=== PATIENT | male | born 1995 | race African-American/Black ===

== ENCOUNTER 2018-10-14 12:30 | Inpatient (IN) | payer OTHER ==
[~2018-10-14] VITALS: Ht 167.6 cm; Wt 71.4 kg
[2018-10-14 13:23] LABS: HEMATOCRIT 46.5 % (42.0-52.0); HEMOGLOBIN 15.3 g/dl (13.5-17.5); MEAN CORPUSCULAR HEMOGLOBIN 28.2 pg (27.0-33.0); MEAN CORPUSCULAR HGB CONC 32.9 g/dl (32.0-36.5); MEAN CORPUSCULAR VOLUME 85.8 fl (80.0-96.0); PLATELET COUNT, AUTOMATED 256 10^3/uL (150-450); RED BLOOD COUNT 5.42 10^6/uL (4.30-6.10); WHITE BLOOD COUNT 4.1 10^3/uL (4.0-10.0)
[2018-10-14 13:44] LABS: AMPHETAMINES LEVEL URINE NEGATIVE (NEGATIVE); BARBITURATES URINE NEGATIVE (NEGATIVE); BENZODIAZEPINES URINE NEGATIVE (NEGATIVE); CANNABINOIDS URINE NEGATIVE (NEGATIVE); COCAINE METABOLITE URINE NEGATIVE (NEGATIVE); METHADONE URINE NEGATIVE (NEGATIVE); OPIATES URINE NEGATIVE (NEGATIVE); PHENCYCLIDINE URINE NEGATIVE (NEGATIVE)
[2018-10-14 13:56] LABS: ACETAMINOPHEN LEVEL < 2.0 UG/ML (10.0-30.0); ALBUMIN 3.8 GM/DL (3.2-5.2); ALT/SGPT 25 U/L (12-78); BILIRUBIN,DIRECT 0.1 MG/DL (0.0-0.2); BILIRUBIN,TOTAL 0.4 MG/DL (0.2-1.0); BLOOD UREA NITROGEN 11 MG/DL (7-18); CALCIUM LEVEL 9.2 MG/DL (8.5-10.1); CARBON DIOXIDE LEVEL 26 MEQ/L (21-32); CHLORIDE LEVEL 107 MEQ/L (98-107); CREATININE FOR GFR 1.01 MG/DL (0.70-1.30); ETHYL ALCOHOL (ETHANOL) < 0.003 % (0.000-0.010); GLOMERULAR FILTRATION RATE > 60.0 (>60); GLUCOSE, FASTING 98 MG/DL (70-100); POTASSIUM SERUM 4.2 MEQ/L (3.5-5.1); SALICYLATE LEVEL < 1.7 MG/DL (5.0-30.0); SODIUM LEVEL 140 MEQ/L (136-145); THYROID STIMULATING HORMONE 0.857 uIU/ML (0.358-3.740); TOTAL PROTEIN 7.5 GM/DL (6.4-8.2)
[2018-10-14] MEDS ORDERED: traZODone 50 MG TAB PO PRN (16:30)
[2018-10-14] MEDS ORDERED: MOM 30ML SUSPENSION UDC PO PRN (16:30)
[2018-10-14] MEDS ORDERED: ACETAMINOPHEN TAB 650MG DOSE (2X325MG) PO PRN (16:30)
[2018-10-14 20:27] VITALS: BP 132/72
[2018-10-15 06:37] VITALS: BP 97/50
[2018-10-15] MEDS: NICOTINE 21MG/24HR 1 EA TRANSDERMAL TD SCH (09:00)
[2018-10-15] MEDS: SERTRALINE HCL 50 MG TAB PO SCH (09:49)
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
--- NOTE | 2018-10-15 11:59 | HPEPDOC ---
[facility] Medical History & Physical History and Physical CHIEF COMPLAINT: Depression and Suicidal Ideation HISTORY OF PRESENT ILLNESS: 22 year old male pmh of headache and depression who presented to ER on 10/14/18 morning because he had suicidal ideation but no plan to follow through. He is currently active at [facility]. He is currently admitted at [facility] for psych treatment. He has no complaints of medical problems. PAST MEDICAL HISTORY: 1. Headache 2. Depression PAST SURGICAL HISTORY: NONE. SOCIAL HISTORY: Marital status: but lives alone currently Resides in: [facility] Children: None Employment: Tobacco use: Cigar 1 pack day for 1 month ETOH: Denies Illicit drug use: Smoked weed as a teenager. Tattoos done unprofessionally: yes in [place]. all done in [place] last one 1 year prior IV drug use: No FAMILY HISTORY: Father: Attention hyperlipidemia Mother: NONE ALLERGIES: Please see below. REVIEW OF SYSTEMS: CONSTITUTIONAL: Denies, fever, chills, night sweats HEENT: denies itchy eyes, rhinorrhea, sinus congestion, PND CARDIOVASCULAR: denies palpitation or chest pain RESPIRATORY: Denies cough, SOB, trouble breathing hx of asthma. GASTROINTESTINAL: admits to 2 episodes of loose stool this AM. denies abdominal pain, nausea vomiting, constipation. SKIN: denies skin breakdown or lymphadenopathy NEUROLOGICAL: admits headaches, denies lightheadedness, dizziness or unsteadiness HOME MEDICATIONS: Please see below. PHYSICAL EXAMINATION: GENERAL APPEARANCE: Pleasant 22-year-old -[place] Citizen male does not appear acute distress appropriately answering questions. HEENT: Atraumatic normocephalic pupils equal round reactive, moist mucous membranes CARDIOVASCULAR: Regular Rate and rhythm, no audible murmurs rubs or gallops. LUNGS: Clear to auscultate bilaterally no audible wheezing rhonchi or Rales ABDOMEN: Soft nondistended abdomen MUSCULOSKELETAL: No lower extremity edema tenderness NEUROLOGICAL: Alert and oriented 3 PSYCHIATRIC: Appropriate Affect LABORATORY DATA: See below. MICROBIOLOGY: Please see below. ASSESSMENT: 22 year old male pmh of headache and depression who presented to ER on 10/14/18 morning because he had suicidal ideation but no plan to follow through. PLAN: 1. No medical problems.If any medical problems arise while he is admitted please recontact us thank you. 2. Follow psychiatric recommendations for depression Vital Signs Vital Signs Date Time Temp Pulse Resp B/P (MAP) Pulse Ox O2 Delivery O2 Flow Rate FiO2 10/15/18 06:37 97.6 51 16 97/50 (66) 10/14/18 20:27 97 Laboratory Data Labs 24H Laboratory Tests 2 10/14/18 12:53: Nucleated Red Blood Cells % (auto) 0.0, Anion Gap 7L, Glomerular Filtration Rate > 60.0, Calcium Level 9.2, Aspartate Amino Transf (AST/SGOT) 19, Alanine Aminotransferase (ALT/SGPT) 25, Alkaline Phosphatase 77, Total Bilirubin 0.4, Direct Bilirubin 0.1, Total Protein 7.5, Albumin 3.8, Albumin/Globulin Ratio 1.03, Thyroid Stimulating Hormone (TSH) 0.857, Salicylates Level < 1.7L, Urine Amphetamines Screen NEGATIVE, Urine Benzodiazepines Screen NEGATIVE, Urine Opiates Screen NEGATIVE, Urine Methadone Screen NEGATIVE, Acetaminophen Level < 2.0L, Urine Barbiturates Screen NEGATIVE, Urine Phencyclidine Screen NEGATIVE, Urine Cocaine Metabolite Screen NEGATIVE, Urine Cannabinoids Screen NEGATIVE, Ethyl Alcohol Level < 0.003 CBC/BMP Laboratory Tests 10/14/18 12:53 Red Blood Count 5.42, Mean Corpuscular Volume 85.8, Mean Corpuscular Hemoglobin 28.2, Mean Corpuscular Hemoglobin Concent 32.9, Red Cell Distribution Width 13.2 Home Medications Scheduled Nicotine (Nicotine Patch) 21 Mg Patch.td24, 1 PATCH TD DAILY for nicotine cravings Sertraline HCl (Sertraline HCl) 50 Mg Tablet, 50 MG PO DAILY for depression Scheduled PRN Trazodone HCl (Trazodone HCl) 50 Mg Tablet, 50 MG PO QHSP PRN for INSOMNIA Allergies Coded Allergies: No Known Allergies (Verified Allergy, Unknown, 10/14/18) A-FIB/CHADSVASC A-FIB History Current/History of A-Fib/PAF?: No GME ATTESTATION GME ATTESTATION My faculty preceptor for this patient encounter was physically present during the encounter and was fully available. All aspects of the patient interview, examination, medical decision making process, and medical care plan development were reviewed and approved by the faculty preceptor. The faculty preceptor is aware and concurs with the plan as stated in the body of this note and will attest to such by his/her cosignature. ATTENDING NOTE I have reviewed the residents note and have personally examined the patient. I agree with the Residents physical examination and assessment and plan. YOUSUF JEFFERY DO Oct 15, 2018 11:59 ELDA STEPHENSON MD Oct 17, 2018 21:24
[2018-10-15 18:00] VITALS: BP 110/71
--- NOTE | 2018-10-16 00:47 | ECGEPIP ---
Stationary ECG Study [facility] Test Date: 2018-10-15 Pat Name: MARY ERICKSON Department: Room: [place] [address] Gender: M Bellman Captain: PEGGY : 1995 Requested By: LEO GREENE PGY-1 Order Number: [id number] Reading MD: Alberto Darby Measurements Intervals [place] Rate: 54 P: 1 MT: 100 QRS: 67 QRSD: 84 T: 1 QT: 420 QTc: 401 Interpretive Statements SINUS BRADYCARDIA WITH SHORT MT INTERVAL Comparison tracing not on file Electronically Signed On 10-16-2018 0:47:04 EDT by Alberto Darby
[2018-10-16 07:10] VITALS: BP 106/54
[2018-10-16] MEDS: NICOTINE 21MG/24HR 1 EA TRANSDERMAL TD SCH (09:00)
[2018-10-16] MEDS: SERTRALINE HCL 50 MG TAB PO SCH (09:05)
[2018-10-16] MEDS ORDERED: NICO21PAT TD (09:10)
[2018-10-16] MEDS ORDERED: SERT-155 PO (09:10)
[2018-10-16] MEDS ORDERED: TRAZO50TA PO (09:10)
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
== END 2018-10-16 10:10 | disposition home or self-care (01) | DRG 881 ==
LOC: M ED 12:30 → M ED INP 16:24 → M PSY 20:05
PROVIDERS: ADMIT Psychiatry & Neurology Psychiatry; ATTEND Psychiatry & Neurology Psychiatry
DX: F32.9 Major depressive disorder, single episode, unspecified (principal); R45.851 Suicidal ideations; F43.10 Post-traumatic stress disorder, unspecified; F17.200 Nicotine dependence, unspecified, uncomplicated

== ENCOUNTER 2019-02-22 15:12 | Emergency (ER) | payer OTHER ==
[~2019-02-22] VITALS: Ht 167.6 cm; Wt 79.0 kg
[~2019-02-22 15:12] MED LIST: NICO21PAT TD; SERT-155 PO; TRAZ1TAB10 PO
[2019-02-22] MEDS ORDERED: REME15TA PO (15:21)
[2019-02-22] MEDS ORDERED: ARIP1TAB4 PO (15:21)
[2019-02-22] MEDS ORDERED: ASPIRIN 81 MG CHEW TABLET PO ONE (15:30)
--- NOTE | 2019-02-22 15:59 | REP ---
Clinical: cough/dyspnea. Comparison: none. Technique: PA and lateral. Findings: The mediastinum and cardiac silhouette are normal. The lung marie are clear and without acute consolidation, effusion, or pneumothorax. The skeletal structures are intact and normal. Impression: 1. No acute cardiopulmonary process. Electronically Signed by Jun Pabon MD 02/22/2019 03:51 P
[2019-02-22 16:26] LABS: BASO % 0.3 % (0.0-1.0); EOS # 0.1 10^3/uL (0.0-0.5); EOS % 0.5 % (0.0-3.0); HEMOGLOBIN 14.1 g/dl (13.5-17.5); LYMPH # 2.6 10^3/uL (1.5-5.0); LYMPH % 27.4 % (24.0-44.0); MEAN CORPUSCULAR HEMOGLOBIN 28.7 pg (27.0-33.0); MEAN CORPUSCULAR HGB CONC 32.8 g/dl (32.0-36.5); MEAN CORPUSCULAR VOLUME 87.6 fl (80.0-96.0); MONO # 0.9 10^3/uL (0.0-0.8); MONO % 8.8 % (0.0-5.0); NEUTROPHILS % 62.7 % (36.0-66.0); PLATELET COUNT, AUTOMATED 242 10^3/uL (150-450); RED BLOOD COUNT 4.91 10^6/uL (4.30-6.10); WHITE BLOOD COUNT 9.6 10^3/uL (4.0-10.0)
[2019-02-22 16:38] LABS: INR 1.07; PROTHROMBIN TIME 13.6 SECONDS (11.8-14.0)
[2019-02-22 16:40] LABS: D-DIMER QUANT 1229.03 ng/ml (<500)
[2019-02-22 16:52] LABS: ALBUMIN 3.7 GM/DL (3.2-5.2); ALT/SGPT 24 U/L (12-78); AMYLASE 38 U/L (25-115); BILIRUBIN,DIRECT 0.2 MG/DL (0.0-0.2); BILIRUBIN,TOTAL 1.1 MG/DL (0.2-1.0); BLOOD UREA NITROGEN 6 MG/DL (7-18); CARBON DIOXIDE LEVEL 29 MEQ/L (21-32); CHLORIDE LEVEL 106 MEQ/L (98-107); CK-MB VALUE MASS < 1.0 NG/ML (<3.6); CPK CREATINE PHOSPHOKINASE 83 U/L (39-308); GLOMERULAR FILTRATION RATE > 60.0 (>60); GLUCOSE, FASTING 91 MG/DL (70-100); NT-PRO BNP 43 PG/ML (<125); POTASSIUM SERUM 3.8 MEQ/L (3.5-5.1); SODIUM LEVEL 140 MEQ/L (136-145); TOTAL PROTEIN 7.1 GM/DL (6.4-8.2); TROPONIN I < 0.02 NG/ML (< 0.10)
[2019-02-22 16:58] LABS: ABG BASE EXCESS 2.7 (-2.0-2.0); ABG HCO3 27.5 MEQ/L (22.0-26.0); ABG O2 SATURATION 92.9 % (95.0-99.0); ABG PARTIAL PRESSURE CO2 42.8 mmHg (35.0-45.0); ABG PARTIAL PRESSURE O2 62.4 mmHg (75.0-100.0); ABG STANDARD HCO3 26.7 MEQ/L (22.0-26.0); ABG TOTAL CO2 28.8 MEQ/L (22.0-29.0); ABG pH (ARTERIAL) 7.425 UNITS (7.350-7.450)
[2019-02-22] MEDS ORDERED: KETOROLAC 30 MG/ML VIAL (J1885) IV ONE (17:15)
[2019-02-22 17:45] VITALS: BP 123/73
[2019-02-22] MEDS ORDERED: ISOVUE-370 76% 100ML VIAL (Q9967) As Ordered ONE (18:11)
--- NOTE | 2019-02-22 18:11 | REPVR ---
EXAM: US Retroperitoneal Limited, Kidneys EXAM DATE/TIME: 02/22/2019 5:18 PM CLINICAL HISTORY: 23 years old, male; Abdominal pain; Flank; Right lower quadrant (rlq); Additional info: Pain on right TECHNIQUE: Imaging protocol: Real-time ultrasound of the retroperitoneum with image documentation. Examination was focused on the kidneys. COMPARISON: No relevant prior studies available. FINDINGS: Right kidney: The right kidney measures 9.8 CM in length by 4.2 CM in thickness. There is no evidence of right hydronephrosis. The left kidney measures 10.4 CM in length by 5.6 CM in thickness. There is no evidence of hydronephrosis of the left kidney. Bladder: The urinary bladder has a small amount of urine and cannot be completely evaluated. Jets of urine cannot be appreciated right or left. IMPRESSION: No evidence of significant hydronephrosis on the right. Electronically signed by: Toi Moore On 02/22/2019 18:11:02 PM
[2019-02-22] MEDS ORDERED: MORPHINE 2 MG/ML 1ML SYRINGE (J2270) IV ONE (18:15)
--- NOTE | 2019-02-22 19:02 | REPVR ---
EXAM: CT Angiography Chest With Contrast EXAM DATE/TIME: 02/22/2019 6:16 PM CLINICAL HISTORY: 23 years old, male; Shortness of breath; Chest pain; Type not specified; Additional info: Chest pain SOB TECHNIQUE: Imaging protocol: Computed tomographic angiography of the chest with intravenous contrast. 3D rendering: MIP and 3D reconstructed images were created and reviewed. Radiation optimization: All CT scans at this facility use at least one of these dose optimization techniques: automated exposure control; mA and/or kV adjustment per patient size (includes targeted exams where dose is matched to clinical indication); or iterative reconstruction. Contrast material: ISOVUE 370; Contrast volume: 75 ml; Contrast route: IV; COMPARISON: CR Chest, 2 view PA, Lat 02/22/2019 3:41 PM FINDINGS: Pulmonary arteries: There are small pulmonary emboli in the small pulmonary arteries at the right lung base. There is mild atelectasis at the right lung base. Aorta: There is opacification of the aorta appears intact. Pleural space: There is no evidence of pneumothorax and no evidence of pleural effusion. Heart: There is no pericardial effusion. Gallbladder and bile ducts: The gallbladder is fluid-filled. Lymph nodes: Unremarkable. No enlarged lymph nodes. Bones/joints: Unremarkable. No acute fracture. Soft tissues: Unremarkable. IMPRESSION: The study is positive for pulmonary emboli small pulmonary emboli to branches pulmonary arteries right lung base. Electronically signed by: Toi Moore On 02/22/2019 19:01:58 PM
[2019-02-24] MEDS ORDERED: SERT-155 PO (12:59)
== END 2019-02-22 19:20 | disposition left against medical advice (07) ==
LOC: M ED 15:12
DX: I26.99 Other pulmonary embolism without acute cor pulmonale (principal); R06.02 Shortness of breath; Z53.29 Procedure and treatment not carried out because of patient's decision for other reasons; F17.210 Nicotine dependence, cigarettes, uncomplicated; F41.9 Anxiety disorder, unspecified; F32.9 Major depressive disorder, single episode, unspecified
CPT/HCPCS: 36600; 71046; 71275; 76775; 80048; 80076; 81001; 82150; 82550; 82553; 82803; 83880; 84484; 85025; 85379; 85610; 87040; 93041; 96374; 99284; J1885; Q9967

== ENCOUNTER 2019-02-24 10:12 | Observation (INO) | payer OTHER ==
[~2019-02-24] VITALS: Ht 167.6 cm; Wt 72.7 kg
[~2019-02-24 10:12] MED LIST changes: +ARIP1TAB4 PO; +REME15TA PO; -SERT-155 PO; +SERT50TA29 PO
[2019-02-24 11:30] LABS: BASO % 0.8 % (0.0-1.0); EOS % 0.8 % (0.0-3.0); HEMATOCRIT 42.2 % (42.0-52.0); HEMOGLOBIN 13.9 g/dl (13.5-17.5); LYMPH # 1.7 10^3/uL (1.5-5.0); LYMPH % 33.9 % (24.0-44.0); MEAN CORPUSCULAR HEMOGLOBIN 29.3 pg (27.0-33.0); MEAN CORPUSCULAR HGB CONC 32.9 g/dl (32.0-36.5); MEAN CORPUSCULAR VOLUME 88.8 fl (80.0-96.0); MONO # 0.3 10^3/uL (0.0-0.8); MONO % 6.6 % (0.0-5.0); NEUTROPHILS % 57.7 % (36.0-66.0); PLATELET COUNT, AUTOMATED 261 10^3/uL (150-450); RED BLOOD COUNT 4.75 10^6/uL (4.30-6.10); WHITE BLOOD COUNT 5.1 10^3/uL (4.0-10.0)
[2019-02-24 12:07] LABS: ALBUMIN 3.5 GM/DL (3.2-5.2); ALT/SGPT 19 U/L (12-78); BILIRUBIN,DIRECT 0.1 MG/DL (0.0-0.2); BILIRUBIN,TOTAL 0.3 MG/DL (0.2-1.0); BLOOD UREA NITROGEN 12 MG/DL (7-18); CARBON DIOXIDE LEVEL 30 MEQ/L (21-32); CHLORIDE LEVEL 110 MEQ/L (98-107); CK-MB VALUE MASS < 1.0 NG/ML (<3.6); CPK CREATINE PHOSPHOKINASE 54 U/L (39-308); CREATININE FOR GFR 1.01 MG/DL (0.70-1.30); GLOMERULAR FILTRATION RATE > 60.0 (>60); GLUCOSE, FASTING 110 MG/DL (70-100); MB/CK RELATIVE INDEX 1.85 (< OR =4); NT-PRO BNP 27 PG/ML (<125); SODIUM LEVEL 142 MEQ/L (136-145); THYROID STIMULATING HORMONE 0.665 uIU/ML (0.358-3.740); TOTAL PROTEIN 6.9 GM/DL (6.4-8.2); TROPONIN I < 0.02 NG/ML (< 0.10)
[2019-02-24] MEDS ORDERED: SERT50TA29 PO (12:59)
[2019-02-24] MEDS ORDERED: SERT-138 PO (12:59)
[2019-02-24] MEDS ORDERED: TRAZ1TAB10 PO (12:59)
[2019-02-24] MEDS ORDERED: traZODone 50 MG TAB PO PRN (13:30)
[2019-02-24] MEDS: ARIPiprazole 2 MG TAB PO SCH (13:55)
[2019-02-24] MEDS: APIXABAN 5 MG TAB (ELIQUIS) PO SCH ×2 (13:56→21:10)
--- NOTE | 2019-02-24 14:03 | HPEPDOC ---
General Date of Admission Date of Service: Feb 24, 2019 Attending Physician: BETTINA PAPPAS DO Chief Complaint The patient is a 23-year-old male admitted with a reason for visit of SOB. Source: Patient Exam Limitations: No limitations Timing/Duration: Day(s) Severity: Mild Associated Symptoms: Chest Pain History of Present Illness Patient is 23 years old male, -Nigerian, with past medical history of depression and anxiety presenting to the hospital with right-sided chest pain and shortness of breath. Patient stated that his symptoms started 5 days ago when he started feeling shortness of breath on exertion and weakness. Patient came to the emergency 3 days ago, CT was done and showed a right subsegmental pulmonary emboli. Patient left the hospital AMA. He did not receive any anticoagulation treatment. Today patient came back stated that he still has shortness of breath and mild right-sided chest pain. Patient denies any family history of blood clots or bleeding disorder. Home Medications Scheduled Aripiprazole (Aripiprazole) 2 Mg Tablet, 2 MG PO DAILY, (Reported) Mirtazapine (Remeron) 15 Mg Tablet, 15 MG PO QHS, (Reported) Sertraline HCl (Sertraline HCl) 50 Mg Tablet, 50 MG PO DAILY, (Reported) 150MG TOTAL DAILY Sertraline HCl (Sertraline HCl) 100 Mg Tablet, 100 MG PO DAILY, (Reported) 150MG TOTAL DAILY Scheduled PRN Trazodone HCl (Trazodone HCl) 50 Mg Tablet, 50 MG PO QHS PRN for SLEEP, (Reported) Allergies Coded Allergies: No Known Allergies (Verified Allergy, Unknown, 10/14/18) Past Medical History Medical History Depression, anxiety Family History Mom developed stroke at age 36, father has hypertension, grandmother from Hodgkin lymphoma. No history of clots, bleeding disorder in his family Social History * Smoker: current smoker, cigar Alcohol: Denies Drugs: marijuana Psychosocial History: Anxiety, Depression A-FIB/CHADSVASC A-FIB History Current/History of A-Fib/PAF?: No Current PO Anticoag Therapy: No Review of Systems Constitutional: Denies: Chills, Fever Eyes: Denies: Pain, Vision change ENT: Denies: Head Aches Skin: Denies: Rash, Lesions Pulmonary: Reports: Dyspnea, Pleuritic Chest Pain Cardiovascular: Denies: Palpitations, Orthopnea Gastrointestinal: Denies: Nausea, Vomiting Genitourinary: Denies: Dysuria, Frequency Hematologic: Denies: Bruising, Bleeding Excessively Endocrine: Denies: Polydipsia, Polyphagia Musculoskeletal: Denies: Neck Pain, Back Pain Neurological: Denies: Weakness, Numbness Psych: Denies: Mood Normal, Anxiety Physical Examination General Exam: Positive: Alert, Cooperative, No Acute Distress Eye Exam: Positive: PERRLA, Conjunctiva & lids normal ENT Exam: Positive: Atraumatic Neck Exam: Positive: Supple; Negative: JVD Chest Exam: Positive: Clear to auscultation Heart Exam: Positive: Rate Normal Telemetry: Positive: No significant arrhythmia Abdomen Exam: Positive: Normal bowel sounds Extremity Exam: Negative: Clubbing, Cyanosis Skin Exam: Positive: Nl turgor and temperature Neuro Exam: Positive: Normal Gait, Strength at 5/5 X4 ext, Cranial Nerves 3-12 NL Psych Exam: Positive: Mental status NL Vital Signs Vital Signs Date Time Temp Pulse Resp B/P (MAP) Pulse Ox O2 Delivery O2 Flow Rate FiO2 02/24/19 12:15 51 99 02/24/19 12:00 140/80 (100) 02/24/19 10:34 98.5 02/24/19 10:19 18 Room Air Laboratory Data Labs 24H Laboratory Tests 2 02/24/19 11:14: Immature Granulocyte % (Auto) 0.2, White Blood Count 5.1, Red Blood Count 4.75, Hemoglobin 13.9, Hematocrit 42.2, Mean Corpuscular Volume 88.8, Mean Corpuscular Hemoglobin 29.3, Mean Corpuscular Hemoglobin Concent 32.9, Red Cell Distribution Width 13.0, Platelet Count 261, Neutrophils (%) (Auto) 57.7, Lymphocytes (%) (Auto) 33.9, Monocytes (%) (Auto) 6.6H, Eosinophils (%) (Auto) 0.8, Basophils (%) (Auto) 0.8, Neutrophils # (Auto) 3.0, Lymphocytes # (Auto) 1.7, Monocytes # (Auto) 0.3, Eosinophils # (Auto) 0.0, Basophils # (Auto) 0.0, Nucleated Red Blood Cells % (auto) 0.0, Anion Gap 2L, Glomerular Filtration Rate > 60.0, Calcium Level 9.0, Aspartate Amino Transf (AST/SGOT) 11, Alanine Aminotransferase (ALT/SGPT) 19, Alkaline Phosphatase 64, Total Bilirubin 0.3#, Direct Bilirubin 0.1, Total Creatine Kinase 54, Creatine Kinase MB < 1.0, Creatine Kinase MB Relative Index 1.85, Troponin I < 0.02, EI-Zjj-V-Type Natriuretic Peptide 27, Total Protein 6.9, Albumin 3.5, Albumin/Globulin Ratio 1.03, Thyroid Stimulating Hormone (TSH) 0.665 CBC/BMP Laboratory Tests 02/24/19 11:14 Red Blood Count 4.75, Mean Corpuscular Volume 88.8, Mean Corpuscular Hemoglobin 29.3, Mean Corpuscular Hemoglobin Concent 32.9, Red Cell Distribution Width 13.0, Neutrophils (%) (Auto) 57.7, Lymphocytes (%) (Auto) 33.9, Monocytes (%) (Auto) 6.6 H, Eosinophils (%) (Auto) 0.8, Basophils (%) (Auto) 0.8, Neutrophils # (Auto) 3.0, Lymphocytes # (Auto) 1.7, Monocytes # (Auto) 0.3, Eosinophils # (Auto) 0.0, Basophils # (Auto) 0.0 Assessment/Plan Patient is 23 years old male, -Nigerian, with past medical history of depression and anxiety presenting to the hospital with right-sided chest pain and shortness of breath. Patient stated that his symptoms started 5 days ago when he started feeling shortness of breath on exertion and weakness. Patient came to the emergency 3 days ago, CT was done and showed a right subsegmental pulmonary emboli. Patient left the hospital AMA. He did not receive any anticoagulation treatment. Today patient came back stated that he still has shortness of breath and mild right-sided chest pain. Patient denies any family history of blood clots or bleeding disorder. Problems (1) Pulmonary emboli Status: Acute Problem Text: Patient developed unprovoked pulmonary emboli. He denies any family history or blood clots, bleeding disorder Patient did not get anticoagulation yet, which can false-positive result. I ordered workup including antithrombin III deficiency, protein C, protein S, lupus anticoagulant, homocystinuria. I will start Apixaban 10 mg twice a day for next 7 days, then 5 mg twice a day for prolonged period of time at least 6 months given unprovoked PE Follow-up with engine dynamometer tester in the outpatient settings (2) Depression Problem Text: Continue home meds (3) Anxiety Problem Text: Continue home meds Plan / VTE VTE Prophylaxis Ordered?: Yes BETTINA PAPPAS DO Feb 24, 2019 14:03
[2019-02-24 15:58] LABS: INR 1.02; PROTHROMBIN TIME 13.1 SECONDS (11.8-14.0)
[2019-02-24] MEDS: NICOTINE 14 MG/24 HR TRANSDERMAL TD SCH (16:06)
[2019-02-24] MEDS ORDERED: MIRTAZAPINE 15 MG TAB PO SCH (21:00)
[2019-02-24 22:00] VITALS: BP 131/83
[2019-02-25 06:00] VITALS: BP 127/85
[2019-02-25 06:01] LABS: HEMATOCRIT 42.3 % (42.0-52.0); MEAN CORPUSCULAR HEMOGLOBIN 29.8 pg (27.0-33.0); MEAN CORPUSCULAR HGB CONC 33.1 g/dl (32.0-36.5); PLATELET COUNT, AUTOMATED 245 10^3/uL (150-450); WHITE BLOOD COUNT 4.2 10^3/uL (4.0-10.0)
[2019-02-25 06:14] LABS: BLOOD UREA NITROGEN 12 MG/DL (7-18); CALCIUM LEVEL 9.2 MG/DL (8.5-10.1); CARBON DIOXIDE LEVEL 29 MEQ/L (21-32); CHLORIDE LEVEL 109 MEQ/L (98-107); CREATININE FOR GFR 0.93 MG/DL (0.70-1.30); GLOMERULAR FILTRATION RATE > 60.0 (>60); GLUCOSE, FASTING 95 MG/DL (70-100); POTASSIUM SERUM 3.6 MEQ/L (3.5-5.1); SODIUM LEVEL 141 MEQ/L (136-145)
[2019-02-25] MEDS: NICOTINE 14 MG/24 HR TRANSDERMAL TD SCH (08:41)
[2019-02-25] MEDS: APIXABAN 5 MG TAB (ELIQUIS) PO SCH (08:43)
[2019-02-25] MEDS: ARIPiprazole 2 MG TAB PO SCH (08:43)
[2019-02-25] MEDS ORDERED: SERTRALINE HCL 50 MG TAB PO SCH (09:00)
[2019-02-25] MEDS ORDERED: SERTRALINE 100 MG TAB PO SCH (09:00)
[2019-02-25] MEDS ORDERED: ELIQ5TAB PO (10:02)
--- NOTE | 2019-02-25 13:37 | DS.PDOC ---
Discharge Summary General Date of Admission Feb 24, 2019 at 13:20 Date of Discharge 02/25/19 Discharge Summary PROCEDURES PERFORMED DURING STAY: None. ADMITTING DIAGNOSES: 1. Pulmonary embolus. DISCHARGE DIAGNOSES: 1. Pulmonary embolus. COMPLICATIONS/CHIEF COMPLAINT: SOB. HISTORY OF PRESENT ILLNESS: Patient is 23 years old male, -Finnish, with past medical history of depression and anxiety presenting to the hospital with right-sided chest pain and shortness of breath. Patient stated that his symptoms started 5 days ago when he started feeling shortness of breath on exertion and weakness. Patient came to the emergency 3 days ago, CT was done and showed a right subsegmental pulmonary emboli. Patient left the hospital AMA. He did not receive any anticoagulation treatment. Today patient came back stated that he still has shortness of breath and mild right-sided chest pain. Patient denies any family history of blood clots or bleeding disorder.. HOSPITAL COURSE: Patient developed unprovoked pulmonary emboli. He denies any family history or blood clots, bleeding disorder Patient did not get anticoagulation yet, which can false-positive result. I ordered workup including antithrombin III deficiency, protein C, protein S, lupus anticoagulant, homocystinuria. I will start Apixaban 10 mg twice a day for next 7 days, then 5 mg twice a day for prolonged period of time at least 6 months given unprovoked PE Follow-up with electrical sign servicer in the outpatient settings. DISCHARGE MEDICATIONS: Please see below. ALLERGIES: Please see below. PHYSICAL EXAMINATION ON DISCHARGE: VITAL SIGNS: Please see below. GENERAL: Within normal limits HEENT: PERRLA NECK: [Supple CARDIOVASCULAR EXAMINATION: S1, S2, regular RESPIRATORY EXAMINATION: Clear to A&P ABDOMINAL EXAMINATION: , Soft, nontender. Once the presence EXTREMITIES: No clubbing, cyanosis, edema SKIN: Normal NEUROLOGICAL EXAMINATION: Focal motor sensory deficit PSYCHIATRIC EXAMINATION: Normal LABORATORY DATA: Please see below. IMAGING: CTA chest:IMPRESSION: The study is positive for pulmonary emboli small pulmonary emboli to branches pulmonary arteries right lung base PROGNOSIS: Good ACTIVITY: As tolerated. DIET: As tolerated DISCHARGE PLAN: With PCP in one week DISPOSITION: 01 Home, Self-Care. DISCHARGE INSTRUCTIONS: 1. As per discharge instructions. ITEMS TO FOLLOWUP ON ON OUTPATIENT: 1. Lobe with PCP in one week. DISCHARGE CONDITION: Stable. TIME SPENT ON DISCHARGE: Greater than 25 minutes. Vital Signs/I&Os Vital Signs Date Time Temp Pulse Resp B/P (MAP) Pulse Ox O2 Delivery O2 Flow Rate FiO2 02/25/19 06:00 98.4 57 18 127/85 (99) 98 02/24/19 10:19 Room Air I&O- Last 24 Hours up to 6 AM 02/25/19 06:00 Intake Total 900 ml Output Total 300 ml Balance 600 ml Laboratory Data Labs 24H Laboratory Tests 2 02/24/19 16:18: Troponin I < 0.02 02/25/19 05:29: Nucleated Red Blood Cells % (auto) 0.0, Anion Gap 3L, Glomerular Filtration Rate > 60.0, Blood Urea Nitrogen 12, Creatinine 0.93, Sodium Level 141, Potassium Level 3.6, Chloride Level 109H, Carbon Dioxide Level 29, Calcium Level 9.2 CBC/BMP Laboratory Tests 02/25/19 05:29 Red Blood Count 4.70, Mean Corpuscular Volume 90.0, Mean Corpuscular Hemoglobin 29.8, Mean Corpuscular Hemoglobin Concent 33.1, Red Cell Distribution Width 13.0, Calcium Level 9.2 Discharge Medications Scheduled Apixaban (Eliquis) 5 Mg Tablet, 10 MG PO BID Apixaban (Eliquis) 5 Mg Tablet, 5 MG PO BID Aripiprazole (Aripiprazole) 2 Mg Tablet, 2 MG PO DAILY, (Reported) Mirtazapine (Remeron) 15 Mg Tablet, 15 MG PO QHS, (Reported) Sertraline HCl (Sertraline HCl) 50 Mg Tablet, 50 MG PO DAILY, (Reported) 150MG TOTAL DAILY Sertraline HCl (Sertraline HCl) 100 Mg Tablet, 100 MG PO DAILY, (Reported) 150MG TOTAL DAILY Scheduled PRN Trazodone HCl (Trazodone HCl) 50 Mg Tablet, 50 MG PO QHS PRN for SLEEP, (Reported) Allergies Coded Allergies: No Known Allergies (Verified Allergy, Unknown, 10/14/18) ISELA CALHOUN MD Feb 25, 2019 13:37
--- NOTE | 2019-02-25 16:48 | ECGEPIP ---
[facility] - ED Test Date: 2019-02-24 Pat Name: MARY ERICKSON Department: Room: - Gender: Male Fashion Marketer: JMendy : 1995 Requested By: KIT Sandoval Order Number: [id number] Reading MD: Yanna Matthews Measurements Intervals [place] Rate: 57 P: -11 [place]: 107 QRS: 57 QRSD: 87 T: -1 QT: 396 QTc: 388 Interpretive Statements SINUS BRADYCARDIA WITH SHORT [place] INTERVAL SIMILAR 10/15/18 Electronically Signed on 02-25-2019 16:48:13 EDT by Yanna Matthews
[2019-03-02 14:30] LABS: HOMOCYST(E)INE SERUM 8.8 umol/L (0.0-15.0)
[2019-03-03] MEDS ORDERED: APIXABAN 5 MG TAB (ELIQUIS) PO SCH (09:00)
[2019-03-06 12:44] LABS: DRVV SCREEN 88.5 SEC
[2019-03-06 12:54] LABS: PTT LUPUS TYPE ANTICOAG SCREEN 2.2 (0-1.2)
[2019-03-06 13:02] LABS: LUPUS CONFIRM RATIO 1.6
[2019-03-06 13:09] LABS: NORMALIZED RATIO 1.38 (0.00-1.20)
[2019-03-09 00:07] LABS: HEXAGONAL PHASE PHOSPHOLIPID 3 sec (0-11)
== END 2019-02-25 12:38 | disposition home or self-care (01) ==
LOC: M ED 10:12 → M ED INP 13:20 → M MSPAV 15:40
PROVIDERS: ADMIT Internal Medicine; ATTEND Internal Medicine
DX: I26.99 Other pulmonary embolism without acute cor pulmonale (principal); F41.9 Anxiety disorder, unspecified; F32.9 Major depressive disorder, single episode, unspecified; Z79.899 Other long term (current) drug therapy; Z79.01 Long term (current) use of anticoagulants

== ENCOUNTER 2019-03-11 07:10 | Emergency (ER) | payer OTHER ==
[~2019-03-11] VITALS: Ht 165.1 cm; Wt 79.5 kg
[~2019-03-11 07:10] MED LIST changes: +ELIQ5TAB PO; +SERT-138 PO; +SERT-155 PO; -SERT50TA29 PO
[2019-03-11 08:58] VITALS: BP 141/86
== END 2019-03-11 09:03 | disposition home or self-care (01) ==
LOC: EDSEX 07:10 → EDBD 07:10 → M ED 07:10
DX: I26.99 Other pulmonary embolism without acute cor pulmonale (principal); D68.62 Lupus anticoagulant syndrome; Z79.899 Other long term (current) drug therapy; Z79.01 Long term (current) use of anticoagulants

== ENCOUNTER 2019-04-27 07:16 | Emergency (ER) | payer OTHER ==
[~2019-04-27] VITALS: Ht 167.6 cm; Wt 77.6 kg
[~2019-04-27 07:16] MED LIST changes: -SERT-155 PO; +SERT50TA29 PO
[2019-04-27] MEDS ORDERED: LITH150C (07:22)
[2019-04-27 08:16] LABS: HEMATOCRIT 47.7 % (42.0-52.0); HEMOGLOBIN 15.3 g/dl (13.5-17.5); MEAN CORPUSCULAR HGB CONC 32.1 g/dl (32.0-36.5); MEAN CORPUSCULAR VOLUME 90.5 fl (80.0-96.0); PLATELET COUNT, AUTOMATED 241 10^3/uL (150-450); RED BLOOD COUNT 5.27 10^6/uL (4.30-6.10); WHITE BLOOD COUNT 6.8 10^3/uL (4.0-10.0)
[2019-04-27 08:31] LABS: AMPHETAMINES LEVEL URINE NEGATIVE (NEGATIVE); BARBITURATES URINE NEGATIVE (NEGATIVE); BENZODIAZEPINES URINE NEGATIVE (NEGATIVE); CANNABINOIDS URINE POSITIVE (NEGATIVE); COCAINE METABOLITE URINE NEGATIVE (NEGATIVE); METHADONE URINE NEGATIVE (NEGATIVE); OPIATES URINE NEGATIVE (NEGATIVE); PHENCYCLIDINE URINE NEGATIVE (NEGATIVE)
[2019-04-27 08:54] LABS: ACETAMINOPHEN LEVEL < 2.0 UG/ML (10.0-30.0); ALBUMIN 3.8 GM/DL (3.2-5.2); ALT/SGPT 18 U/L (12-78); BILIRUBIN,DIRECT < 0.1 MG/DL (0.0-0.2); BILIRUBIN,TOTAL 0.2 MG/DL (0.2-1.0); BLOOD UREA NITROGEN 9 MG/DL (7-18); CARBON DIOXIDE LEVEL 23 MEQ/L (21-32); CHLORIDE LEVEL 113 MEQ/L (98-107); CREATININE FOR GFR 1.19 MG/DL (0.70-1.30); ETHYL ALCOHOL (ETHANOL) < 0.003 % (0.000-0.010); GLOMERULAR FILTRATION RATE > 60.0 (>60); GLUCOSE, FASTING 96 MG/DL (70-100); SALICYLATE LEVEL 2.6 MG/DL (5.0-30.0); SODIUM LEVEL 142 MEQ/L (136-145); THYROID STIMULATING HORMONE 0.349 uIU/ML (0.358-3.740)
[2019-04-27] MEDS ORDERED: APIXABAN 5 MG TAB (ELIQUIS) PO ONE (09:00)
--- NOTE | 2019-04-27 11:40 | ED PDOC ---
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 During his assessment, the questioning doctor asked why he had not been taking his anticoagulant, he reported that he was unsure, however when I'd spoke to him he reported that he did not like the taste. Nonetheless, upon further questioning he stated that he felt that this could be dangerous to not take it, and that he had chronic suicidal ideation. He was referred for psychiatric evaluation in order to determine if he is safe to go home. When I met with the patient reported that he had chronic suicidal thoughts that had actually been doing better I contacted the outpatient behavioral health and spoke to the nurse health care legal assistant who recently as of today has removed them from the high risk list at [place], as he has been reportedly doing quite well. Although, they note that the patient has chronic risk factors, they were unable to name any specific changes that would suggest that he is at increased risk. In fact the information provided from their last four notes and their own admission of the patient's removal from the high risk list continue to suggest that the patient has been making good positive strides towards reducing his risk in the recent several weeks. Additionally I spoke to his chain of command who speaks to him daily reporting that he has done extremely well improving with better ability to work with suicidal ideation. He per the last four notes from [facility] had had chronic SI but has been practicing good coping skills and complying with the safety plan diffusing is suicidal ideation well. The patient reported that he would not come to the ER in order to have his chest pain treated if he wished to . He reports that he is getting treatment and that he is been doing well. Collateral information confirms this series of events. Review of Psychiatric Systems: Affective: reports improving depression, less fatigue, less loss of interest better engagement.The patient denies any episodes of euphoria/dysphoria associated with decreased need for sleep, hedonism, talkatively or impulsivity lasting longer than 5 days. Anxiety:The patient denies any excessive worry associated with physical symptoms. They deny any experience of discreet panic in the past. Trauma: The patient denies any traumatic events associated with nightmares or intrusive thoughts. Psychosis:The patient denies any experiences of auditory or visual hallucinations. They deny any episodes of paranoia or delusional thinking in the past Personality Screen: screens positive for possible cluster B characteristics Past Psychiatric History: Current Diagnoses: depression Current Outpatient: [facility] Current Medication regiment: Zoloft Abilify and mirtazapine Past Psychiatric Admissions: [facility] inpatient September 2018 Suicide Attempts: denies Past Family Psychiatric History: Denies any psychiatric history or suicide attempts. 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 Denies any other substance use although notably has been utilizing cannabis per toxicology Medical Problems: Seasonal allergies Mental Status Exam: Vitals: reviewed General: Well dressed with good hygiene Speech: Spontaneous and fluid Thought processes: Linear and logical Thought content: Future orientated Abstract reasoning, and computation: Intact Description of associations: Intact Description of abnormal or psychotic thoughts:Denies any suicidal or homicidal ideation. Denies any auditory or visual hallucinations. Does not appear to be responding to internal stimuli. Does not appear to be endorsing any bizarre or paranoid ideation. Judgment: fair Insight: fair Orientation: Alert and orientated 3 Recent and remote memory: Intact Attention span and concentration: Intact Fund of knowledge: Adequate Mood: "okay" Affect: Euthymic with a full range Assessment: the patient a 23-year-old young man with a history of inpatient admission presents for medical treatment in order to prevent his , he does report that he has trouble taking his anticoagulant as he reports it tastes fairly "terrible". He acknowledges that after being told and acknowledged of the risks of not taking it, that he feels renewed vigor to continue to take his anticoagulant. He reports that he has trouble compliance, as is noted in his chart from [facility], but that this is a chronic phenomenon and that he claims that he had been intermittently noncompliant not due to suicide but due to the aforementioned taste of the anticoagulant, his chain of command to his present reports that they are currently working with the pharmacist in order to reformulated in a more palatable form, further confirming the patient's series of events. Collateral information from [facility] although notes concerns, no discreet changes can be noted. After I spoke to the nurse health care legal assistant she was able to access his last several notes where she reported that he had actually been doing quite well, by their own admission they had been removing him this morning from the high risk list as they have been noting from their side he is been doing quite well. His chain of command reports that they doing quite well utilizing the safety plan and engaging in good coping skills. He does make the good argument that he would not self present for chest pain in order to preserve his life if fact he wanted to end his life. He reports he is chronic hopelessness but has no plan or intention of acting on any suicidal thoughts, he reports that he has been doing well with his current treatment. In my clinical opinion at this time there does not appear to be any demonstration of discreet changes in the patient's behavior that would suggest he is in imminent risk, in fact from my investigation of collateral sources it appears that the patient's account of him doing better has actually been confirmed. He is likely at reduced risk from his previous presentation to our inpatient unit of suicide with chronic historical risk factors. His presentation today is likely incidental to his medical care where he was referred out of abundance of caution. He declines voluntary admission and thus must be discharged in good koko. Diagnostics by DSMV: Psychiatric evaluation as ordered by requesting authority Z0 4.6 Recommendations/Rational Can be discharged back home as per the patient's wishes. Discuss safety planning with the patient, chain of command will continue to support the soldier with a report is extremely well supported by his command and is pending leaving the [employer] under a medical board. Time spent: 70 minutes SHAHRIAR Veliz DO Apr 27, 2019 11:40
[2019-04-27 11:55] VITALS: BP 157/85
--- NOTE | 2019-04-27 16:32 | ECGEPIP ---
[facility] - ED Test Date: 2019-04-27 Pat Name: MARY ERICKSON Department: Room: - Gender: Male Speech Language Pathologist: ct : 1995 Requested By: Randolph Weiss Order Number: [id number] Reading MD: Yanna Matthews Measurements Intervals [place] Rate: 75 P: 62 [place]: 112 QRS: 47 QRSD: 86 T: -12 QT: 373 QTc: 419 Interpretive Statements SINUS RHYTHM WITH SINUS ARRHYTHMIA WITH SHORT [place] INTERVAL NONSPECIFIC T-WAVE ABNORMALITY INTERPRETATION BASED ON A DEFAULT AGE OF 39 YEARS INCREASED RATE/NSTTW INTERPRETATION 02/24/19 Electronically Signed on 04-27-2019 16:31:49 EST by Yanna Matthews
== END 2019-04-27 11:57 | disposition home or self-care (01) ==
LOC: M ED 07:16
DX: F32.9 Major depressive disorder, single episode, unspecified (principal); R07.89 Other chest pain; R94.31 Abnormal electrocardiogram [ECG] [EKG]; F17.210 Nicotine dependence, cigarettes, uncomplicated; Z86.711 Personal history of pulmonary embolism; Z79.899 Other long term (current) drug therapy
CPT/HCPCS: 36415; 80048; 80076; 80307; 84443; 85027; 93005; 93041; 94760; 99285; G0480